=== PATIENT | female | born 1950 | race Caucasian/White ===

== ENCOUNTER → 2019-10-12 | Day surgery (SDC) | payer OTHER ==
[~2019-10-12] MED LIST: ACETAMINOPHEN 325 MG TABLET PO PRN; ALBUTEROL SULFATE 2.5 MG/3 ML NEBU. NEB PRN; ALEN70TA3 PO; ATOR10TA60 PO; ATROPINE 0.5 MG/5 ML DISP.SYRIN. IV PRN; IV RINGERS SOLUTION,LACTATED 1,000 ML IV SCH; LIDOCAINE 2% PF Vial for OR 5 ML VIAL. ONE; METF500T16 PO; MIDAZOLAM HCL PF 2 MG/2 ML VIAL. IV PRN; ONDANSETRON PF 4 MG/2 ML VIAL. IV PRN; PHENOL ORAL SPRAY 177ML BOTTLE. MM PRN; PROPOFOL 20 ML IV ONE; diphenhydrAMINE 50 MG/ML VIAL IV PRN
[2019-10-12 11:51] VITALS: BP 128/77
--- NOTE | 2019-10-15 16:06 | PATHOLOGY ---
[facility] Accession Number: [id number] . 01 Material submitted: . stomach - ANTRUM . 01 Clinical history: . Pre-OP DX: GERD, dysphagia Post-OP DX: Antrum gastritis . 02 Diagnosis: Gastric biopsy, antrum: - Chronic gastritis, mild. (JPM:vicky; 10/15/2019) QMS 10/15/2019 1529 Local . 02 Comment: Sections of the gastric antral biopsy show congestion and mild chronic inflammation. A properly controlled immunoperoxidase stain for Helicobacter is negative for Helicobacter organisms. There is no evidence of malignancy. (JPM:vicky; 10/15/2019) . . Special stain performed: Immunoperoxidase stain for Helicobacter on A1. . 02 Electronically signed: . Yo Ramirez MD, Pathologist NPI- [id number] . 01 Gross description: . Received in formalin labeled "Roxanne Avery, antrum 1," are 2 segments of meyer soft tissue measuring 0.9 x 0.3 x 0.3 cm in aggregate dimensions and ranging from 0.4 to 0.5 cm in maximum dimension. The specimen is submitted entirely in cassette A1. (TSD; 10/12/2019) TOB/TOB 10/12/2019 2222 Local . 02 Pathologist provided ICD-10: K29.50 . 02 CPT . 744681, [id number] Specimen Comment: A courtesy copy of this report has been sent to [phone], [phone] Specimen Comment: [id number] Specimen Comment: Report sent to / DR ROBLES Performed at: [address], [place], [place] [id number] MD Miguel De MD Phone: [phone] Performed at: 02 [facility] [address] [place], [place] [id number] MD Yo Ramirez MD Phone: [phone]
== END ==
LOC: SURG 09:45
PROVIDERS: ATTEND Internal Medicine Gastroenterology
DX: R13.10 Dysphagia, unspecified (principal); K21.0 Gastro-esophageal reflux disease with esophagitis; K29.50 Unspecified chronic gastritis without bleeding; K22.2 Esophageal obstruction; K29.00 Acute gastritis without bleeding; K31.9 Disease of stomach and duodenum, unspecified; E11.9 Type 2 diabetes mellitus without complications; Z91.011 Allergy to milk products; Z79.84 Long term (current) use of oral hypoglycemic drugs
CPT/HCPCS: 43239; 43450; 82947; 88305; 88342; J2704; J7120; J2001

== ENCOUNTER → 2019-11-02 | Day surgery (SDC) | payer OTHER ==
[~2019-11-02] MED LIST changes: -LIDOCAINE 2% PF Vial for OR 5 ML VIAL. ONE; -PROPOFOL 20 ML IV ONE; +PROPOFOL 40 ML IV ONE
[2019-11-02 12:51] VITALS: BP 128/75
== END | disposition home or self-care (01) ==
LOC: SURG 10:20
PROVIDERS: ATTEND Internal Medicine Gastroenterology
DX: Z09 Encounter for follow-up examination after completed treatment for conditions other than malignant neoplasm (principal); K64.0 First degree hemorrhoids; K57.30 Diverticulosis of large intestine without perforation or abscess without bleeding; E11.9 Type 2 diabetes mellitus without complications; I10 Essential (primary) hypertension; M19.90 Unspecified osteoarthritis, unspecified site; K21.9 Gastro-esophageal reflux disease without esophagitis; Z79.84 Long term (current) use of oral hypoglycemic drugs; Z86.010 Personal history of colon polyps; Z80.0 Family history of malignant neoplasm of digestive organs; Z79.899 Other long term (current) drug therapy
CPT/HCPCS: 45378; J2704; J7120